=== PATIENT | female | born 1960 | race Asian ===

== ENCOUNTER 2019-04-11 07:17 | Inpatient (IN) | payer BC ==
[2019-03-25 16:00] VITALS: BMI 27.3
[~2019-04-11 07:17] MED LIST: CEFAZOLIN 2 GM in DEXTROSE 5%-WATER - 50 ML IVPB ONE; CELECOXIB 200 MG CAPSULE PO ONE; TRANEXAMIC ACID 1000 MG/10 ML VIAL IVPUSH ONE
[2019-04-11] MEDS ORDERED: PANTOPRAZOLE 40 MG TABLET ONE (07:29)
[2019-04-11] MEDS ORDERED: oxyCODONE HCL 10 MG SUSTAINED ACTING TABLET ONE (07:29)
[2019-04-11] MEDS ORDERED: SODIUM CHLORIDE 0.9% P/F 10 ML VIAL IJ ONE ×2 (07:30→09:27)
[2019-04-11] MEDS ORDERED: BUPIVACAINE LIPOSOME/PF (EXPAREL) 266 MG/20 ML VIAL ONE (07:30)
[2019-04-11] MEDS ORDERED: MIDAZOLAM HCL 2 MG/2 ML SINGLE DOSE VIAL ONE ×2 (07:30→07:37)
[2019-04-11] MEDS ORDERED: TRANEXAMIC ACID 1000 MG/10 ML VIAL ONE ×2 (07:37→07:53)
[2019-04-11] MEDS ORDERED: PROPOFOL 20 ML ONE ×2 (07:37)
--- NOTE | 2019-04-11 07:45 | HP ---
Admitting History and Physical - Admission Chief Complaint: right knee osteoarthritis x years History of Present Illness: 58 year old female presents in regard to their right knee. Long-standing history of right knee osteoarthritis. Patient complains of pain, limited range of motion, difficulty ambulating, and difficulty with activities of daily living. Patient has failed conservative treatment options including PO medications, activity modification, injections, and exercise programs. At this point, patient like to proceed with surgical intervention, right total knee arthroplasty MAKOplasty. History Source: Patient - Past Medical History Cardiovascular: Yes: Pulmonary Hypertension Musculoskeletal: Yes: Osteoarthritis - Past Surgical History Additional Past Surgical History: See written history & physical. - Advance Directives Advance Directives: Yes: Health Care Proxy - Smoking History Smoking history: Never smoked - Alcohol/Substance Use Hx Alcohol Use: No Home Medications - Allergies Allergies/Adverse Reactions: Allergies Allergy/AdvReac Type Severity Reaction Status Date / Time aspirin Allergy Swelling Verified 03/25/19 15:47 Penicillins Allergy Swelling Verified 03/25/19 15:47 shellfish derived Allergy Itching Verified 03/25/19 15:47 - Home Medications Home Medications: Ambulatory Orders Biotin 1 mg PO DAILY 03/25/19 Cholecalciferol (Vitamin D3) [Vitamin D3] 50,000 unit PO WEEKLY 03/25/19 Cyanocobalamin [Vitamin B12 -] 1,000 mcg PO DAILY 03/25/19 Famotidine/Ca Carb/Mag Hydrox [Pepcid Complete Tablet Chew] 1 each PO DAILY Meloxicam [Mobic] 15 mg PO DAILY 03/25/19 Tramadol HCl 75 mg PO DAILY PRN 03/25/19 Review of Systems - Review of Systems Musculoskeletal: reports: Crepitus (right knee), Decreased ROM (right knee), Joint Pain (right knee), Joint Swelling (right knee) Physical Examination Constitutional: Yes: Well Nourished Eyes: Yes: Conjunctiva Clear HENT: Yes: Normocephalic Neck: Yes: Supple Cardiovascular: Yes: Regular Rate and Rhythm Respiratory: Yes: Regular Gastrointestinal: Yes: Soft ...Rectal Exam: Yes: Deferred Musculoskeletal: Yes: Joint Stiffness (right knee), Joint Swelling (right knee) Assessment/Plan 58 year old female presents in regard to their right knee. Long-standing history of right knee osteoarthritis. Patient complains of pain, limited range of motion, difficulty ambulating, and difficulty with activities of daily living. Patient has failed conservative treatment options including PO medications, activity modification, injections, and exercise programs. At this point, patient like to proceed with surgical intervention, right total knee arthroplasty MAKOplasty. Pros, cons, risks, benefits, and alternatives of a right total knee arthroplasty MAKOplasty were discussed with the patient at length. Patient confirms their understanding and consents to proceed with a right total knee arthroplasty MAKOplasty.
[2019-04-11] MEDS ORDERED: VANCOMYCIN 1,000 MG VIAL (RESTRICTED TO ID ONLY) ONE (07:53)
[2019-04-11] MEDS ORDERED: ceFAZolin SODIUM 1 GM VIAL ONE ×2 (07:53→09:27)
[2019-04-11] MEDS ORDERED: oxyCODONE HCL 10 MG SUSTAINED ACTING TABLET PO ONE (08:00)
[2019-04-11] MEDS ORDERED: PANTOPRAZOLE 40 MG TABLET PO ONE (08:00)
[2019-04-11] MEDS ORDERED: PHENYLEPHRINE HCL 10 MG/1 ML SINGLE DOSE VIAL ONE (09:18)
[2019-04-11] MEDS ORDERED: DEXAMETHASONE SOD PHOSPHATE 4 MG/1 ML VIAL ONE (09:27)
[2019-04-11] MEDS ORDERED: ONDANSETRON 4 MG/2 ML VIAL ONE (09:27)
[2019-04-11] MEDS ORDERED: ePHEDrine SULFATE 50 MG/1 ML AMPULE ONE (10:13)
[2019-04-11] MEDS ORDERED: VANCOMYCIN 1,000 MG VIAL (RESTRICTED TO ID ONLY) IVPB ONE (11:15)
[2019-04-11] MEDS ORDERED: TRANEXAMIC ACID 1000 MG/10 ML VIAL IVPUSH ONE (11:31)
[2019-04-11] MEDS ORDERED: traMADol HCL 50 MG TABLET ONE (12:02)
[2019-04-11] MEDS ORDERED: ACETAMINOPHEN INJECTION 100 ML IVPB ONE (12:02)
[2019-04-11] MEDS ORDERED: KETOROLAC TROMETHAMINE 30 MG/1 ML VIAL ONE (12:02)
[2019-04-11] MEDS ORDERED: oxyCODONE HCL 5 MG TABLET PO PRN (12:07)
[2019-04-11] MEDS ORDERED: PROMETHAZINE HCL 25 MG/1 ML VIAL IVPUSH PRN (12:07)
[2019-04-11] MEDS ORDERED: ONDANSETRON 4 MG/2 ML VIAL IVPUSH PRN (12:07)
[2019-04-11] MEDS ORDERED: ACETAMINOPHEN 1000 MG/100 ML VIAL (NON FORMULARY) IVPB ONE (12:26)
[2019-04-11] MEDS ORDERED: traMADol HCL 50 MG TABLET PO SCH (12:30)
[2019-04-11] MEDS ORDERED: LACTATED RINGERS SOLUTION 1,000 ML IV SCH (12:30)
--- NOTE | 2019-04-11 12:31 | OP ---
Operative Note - Note: Operative Date: 04/11/19 Pre-Operative Diagnosis: Right knee OA Operation: RIGHT PEMA TKA Post-Operative Diagnosis: Same as Pre-op Surgeon: Silver Khalil Locomotive Operator: Lilliana Melo Anesthesia: Spinal Estimated Blood Loss (mls): 200
[2019-04-11] MEDS: oxyCODONE HCL 5 MG TABLET PO PRN ×2 (15:34→18:17)
[2019-04-11] MEDS: KETOROLAC TROMETHAMINE 30 MG/1 ML VIAL IVPUSH SCH (18:16)
[2019-04-11] MEDS: CEFAZOLIN 2 GM/D5W 2 GM/50 ML ML IVPB SCH (18:39)
[2019-04-11] MEDS ORDERED: DEXAMETHASONE SOD PHOSPHATE 10 MG/1 ML VIAL IVPB ONE (20:00)
[2019-04-11] MEDS: ACETAMINOPHEN 325 MG TABLET (FP) PO SCH (20:46)
[2019-04-11] MEDS: traMADol HCL 50 MG TABLET PO SCH (20:47)
[2019-04-11] MEDS: oxyCODONE HCL 10 MG SUSTAINED ACTING TABLET PO SCH (21:54)
[2019-04-11] MEDS: SENNOSIDES/DOCUSATE COMBO (SENNA PLUS) TABLET (UD) PO SCH (21:55)
[2019-04-11] MEDS: ASCORBIC ACID 500 MG TABLET (FP) PO SCH (21:55)
[2019-04-11] MEDS: GABAPENTIN 300 MG CAPSULE PO SCH (21:55)
[2019-04-11] MEDS: CELECOXIB 200 MG CAPSULE PO SCH (21:55)
[2019-04-11] MEDS: MAG HYDROX/AL HYDROX/SIMETH 30 ML UNIT-DOSE CUP PO PRN (21:59)
[2019-04-12] MEDS: KETOROLAC TROMETHAMINE 30 MG/1 ML VIAL IVPUSH SCH ×2 (00:29→06:20)
[2019-04-12] MEDS: traMADol HCL 50 MG TABLET PO SCH ×4 (02:04→20:29)
[2019-04-12] MEDS: CEFAZOLIN 2 GM/D5W 2 GM/50 ML ML IVPB SCH (02:05)
[2019-04-12] MEDS: ACETAMINOPHEN 325 MG TABLET (FP) PO SCH ×4 (02:05→20:29)
[2019-04-12 07:56] LABS: HEMATOCRIT 32.1 % (32.4-45.2); HEMOGLOBIN 10.7 GM/dl (10.7-15.3); MCH 30.1 pg (25.7-33.7); MCHC 33.2 g/dl (32.0-36.0); MEAN CELL VOLUME 90.6 fl (80-96); MEAN PLT VOLUME 8.3 fl (7.5-11.1); PLATELET COUNT 334 K/MM3 (134-434); RBC 3.55 M/mm3 (3.60-5.2); RDW 13.2 % (11.6-15.6); WHITE BLOOD COUNT 13.5 K/mm3 (4.0-10.8)
[2019-04-12 08:07] LABS: CALCIUM 9.1 mg/dl (8.5-10); CREATININE 0.7 mg/dl (0.55-1.3)
[2019-04-12] MEDS: APIXABAN 2.5 MG TABLET PO SCH ×2 (10:07→22:41)
[2019-04-12] MEDS: GABAPENTIN 300 MG CAPSULE PO SCH ×2 (10:07→22:41)
[2019-04-12] MEDS: oxyCODONE HCL 10 MG SUSTAINED ACTING TABLET PO SCH ×2 (10:07→22:41)
[2019-04-12] MEDS: CELECOXIB 200 MG CAPSULE PO SCH ×2 (10:07→22:41)
[2019-04-12] MEDS: SENNOSIDES/DOCUSATE COMBO (SENNA PLUS) TABLET (UD) PO SCH ×2 (10:09→22:42)
[2019-04-12] MEDS: ASCORBIC ACID 500 MG TABLET (FP) PO SCH ×2 (10:09→22:43)
[2019-04-12] MEDS: PANTOPRAZOLE 40 MG TABLET PO SCH (10:09)
[2019-04-12] MEDS: MULTIVITAMINS (DAILY MVI) TABLET (FP) PO SCH (10:09)
--- NOTE | 2019-04-12 10:32 | SPEC ---
DATE OF OPERATION: 04/11/2019 PREOPERATIVE DIAGNOSIS: Right knee osteoarthritis. POSTOPERATIVE DIAGNOSIS: Right knee osteoarthritis. PROCEDURE: Right total knee replacement with MAKOplasty robotic navigation. ATTENDING SURGEON: Mike Sears MD TUBE TEST TECHNICIAN: DOTTIE Morris ANESTHESIA: Spinal plus sedation. ESTIMATED BLOOD LOSS: 200 mL. COMPLICATIONS: None. DISPOSITION: The patient was transferred to the PACU in stable condition. IMPLANTS USED: [employer] Triathlon cementless components size 2 femoral component, size 3 tibial component, 13-mm posterior stabilized polyethylene component, 29-mm patellar component. INDICATIONS: This is a 58-year-old female who presented to the office complaining of severe bilateral knee pain. She was seen and examined by Dr. Sears and diagnosed with severe, bilateral knee osteoarthritis. The patient was initially treated nonoperatively with injections, medications, and physical therapy but continued to have severe pain and ambulatory dysfunction. She was, therefore, indicated for a right total knee replacement as the right was the more painful of the 2 sides with the plan to proceed with a left total knee replacement once she had recovered from the right. The risks, benefits, and alternatives to the procedure were explained to the patient in great detail, and the patient elected to proceed with the procedure. DESCRIPTION OF PROCEDURE: On the day of surgery, the patient was taken to the operating room and placed on the OR table. Spinal anesthesia was administered by the anesthesiologist. The patient was then positioned supine on the table and all bony prominences were padded. The knee was then prepped and draped in the usual sterile fashion and intravenous antibiotics were given for infection prophylaxis. A surgical time-out was then performed with the team, and the patients identity, procedure, side, availability of implants, and the administration of antibiotics was confirmed. With the knee flexed, a midline incision was made and carried down through the subcutaneous fat to the underlying retinaculum. A medial parapatellar arthrotomy was performed. This was followed by a subperiosteal dissection of the tissue off the proximal, medial tibia. A portion of fat pad was removed from under the patellar tendon, and a small portion of fat was excised off the distal supracondylar femur. Electrocautery and an Aquamantys bipolar sealing device were used to achieve hemostasis. The knee was then flexed further and the anterior horn of the lateral meniscus was released from the midline. Next, the anterior and posterior cruciate ligaments were transected. Grade 4 changes were noted diffusely throughout the knee. Femoral and tibial checkpoints were then placed in the appropriate location using a mallet. Two parallel bicortical self-drilling pins were placed in the tibial diaphysis after making stab incisions and bluntly dissecting down to bone. Two pins were then placed in the distal supracondylar femur. The wutabout navigation arrays were then attached to both the femoral and tibial pins and the lower extremity was then registered to the robotic navigation device using various joint movements, as well as inputting several dozen reference points. The knee was then taken through a full range of motion with a corrective force applied. Alignment in varus/valgus as well as flexion/extension and soft tissue balance was measured in various positions. The navigation device showed a numerical and graphic representation of the soft tissue balance. The components were repositioned virtually using the software until optimal soft tissue balance was achieved on screen. Once this was accomplished, the final plan was saved and sent to the robot. Self-retaining retractors were then placed at the joint line for exposure and protection of the collateral ligaments. The robot was brought into the sterile field and registered with the navigation device. The robotic arm with attached oscillating saw blade was then used to perform femoral and tibial bone cuts as per the saved software plan. The femoral box cut was made using the appropriately sized manual cutting guide. The knee was then irrigated. Trial components were placed and the knee was taken through a full range of motion to assess soft tissue balance and alignment. The range of motion was found to be excellent and the soft tissue balance was optimal and according to plan. The knee was then put into extension and the patella everted. The synovium around the patella was circumscribed with electrocautery. A caliper was used to measure the patellar thickness and a saw was then used to resect the patella at the chondro-osseous junction. The cut surface was then sized and drilled for the appropriate patellar button, with care taken to medialize it. A trial patella was then placed and the knee was again taken through a full range of motion. The knee was found to have both good balance and good patellar tracking. All of the components were removed except the tibial base plate. The appropriate instrumentation was used to drill and punch the proximal tibia for the keel of the final component. All bony surfaces were then cleaned with pulsatile lavage and dried. Cementless [employer] Triathlon knee replacement components were then impacted in place and found to have a stable press-fit. A trial polyethylene component was placed and the knee was again taken through a full range of motion to assess stability, balance, and patellar tracking. This was found to be optimal and the trial polyethylene was exchanged for the appropriately sized real implant. The wound was then thoroughly irrigated with normal saline. A 3-minute dilute Betadine lavage was performed. The knee was again irrigated using a pulsatile lavage device. A periarticular injection was used to locally infiltrate the capsular tissues surrounding the implant and prosthesis. Then No. 1 Polysorb and 0 VLoc 180 barbed sutures were used to close the arthrotomy. Then No. 1 Polysorb and 2-0 VLoc 90 sutures were used in the subcutaneous tissues. Then 4-0 undyed Vicryl and Dermabond skin adhesive was used to close the stab incisions made for the navigation pins. The skin was closed using both 3-0 VLoc 90 suture in a running subcuticular fashion and Dermabond skin adhesive. Once this was completed a sterile Aquacel dressing and compressive Channing-wrap was applied. The patient was then awakened and taken to the PACU in stable condition. MIKE SEARS M.D. [id number]
--- NOTE | 2019-04-12 16:29 | PN ---
Progress Note (short form) - Note Progress Note: Pt seen and examined. Doing well. AVSS Selected Entries 04/12/19 04/12/19 04/12/19 00:00 04:00 14:05 Temperature 98.3 F 97.6 F Pulse Rate 82 86 Respiratory 18 16 Rate Blood Pressure 110/52 L 104/50 L O2 Sat by Pulse 95 95 Oximetry (%) Oxygen Delivery Room Air Method Laboratory Tests 04/12/19 04/12/19 07:25 07:25 WBC 13.5 H Hgb 10.7 Hct 32.1 L Plt Count 334 Sodium 136 Potassium 4.0 Chloride 104 Carbon Dioxide 24 Anion Gap 8 BUN 14.0 Creatinine 0.7 Est GFR (CKD-EPI)AfAm 111.47 Random Glucose 188 H Calcium 9.1 Gen: NAD, AAO RLE: c/d/i, NVID A/P POD#1 s/p R PEMA TKA PT/OOB D/C home in AM
--- NOTE | 2019-04-12 16:35 | DS ---
Physical Examination Vital Signs: Vital Signs Temperature 97.6 F 04/12/19 14:05 Pulse Rate 86 04/12/19 14:05 Respiratory Rate 16 04/12/19 14:05 Blood Pressure 104/50 L 04/12/19 14:05 O2 Sat by Pulse Oximetry (%) 95 04/12/19 14:05 Labs: CBC, BMP 04/12/19 07:25 04/12/19 07:25 Discharge Summary Problems reviewed: Yes Reason For Visit: RIGHT KNEE OSTEOARTHRITIS Current Active Problems Osteoarthritis of right knee (Acute) Procedures: Principal: Right PEMA TKA Hospital Course: Admitted for elective surgery. Procedure performed without complications. Pt received postoperative antibiotic prophylaxis and DVT ppx. Ambulated with physical therapy. Stable for discharge home with outpatient followup. Condition: Stable - Instructions Diet, Activity, Other Instructions: Dr. Khalil - Knee Replacement Instructions Keep the Aquacel dressing on until removed by Dr. Khalil in the office - it is antibacterial and waterproof and you can shower with it on. Call the office for a follow-up appointment with Dr. Khalil in 2 weeks. Take ELIQUIS 2.5mg twice daily for 5 weeks to prevent blood clots in your legs. Take one Pantoprazole 40mg daily for 6 weeks to protect against heartburn and ulcers. Take Cephalexin (antibiotic) 3x/day for 10 days to help prevent skin infection. Take a multivitamin, stool softener, and extra Vitamin C supplement daily. For pain: *Mild pain (1-3/10): Take 1 Tramadol tablet every 4 hours as needed. Moderate pain (4-6/10): Take 1 Tramadol tablet and 1 Percocet tablet every 4 hours as needed. Severe pain (7-10/10): Take 1 Tramadol tablet and 2 Percocet tablets every 4 hours as needed. Activity: You can put as much weight on the operative leg as you want. Right after you get home, there will be a physical therapist coming to your house to help you walk around and bend/straighten your knee. After your follow-up appointment, you will be sent for more intensive outpatient physical therapy which will include machines and equipment that the home therapist cannot bring to your house. Always use a walker or cane for balance and to prevent falls. Expect to see swelling/bruising from the operative site all the way down to your toes. Wear the compression stocking on the operative side during the day to minimize how much swelling there is in your foot/ankle. Don't wear the stocking at night. You don't have to wear a stocking on the other side. Disposition: VNS/HOME HEALTH CARE - Home Medications Comprehensive Discharge Medication List: Ambulatory Orders Biotin 1 mg PO DAILY 03/25/19 Cholecalciferol (Vitamin D3) [Vitamin D3] 50,000 unit PO WEEKLY 03/25/19 Cyanocobalamin [Vitamin B12 -] 1,000 mcg PO DAILY 03/25/19 Famotidine/Ca Carb/Mag Hydrox [Pepcid Complete Tablet Chew] 1 each PO DAILY Apixaban [Eliquis -] 2.5 mg PO BID #70 tablet 04/12/19 Ascorbic Acid [Vitamin C -] 500 mg PO BID tablet 04/12/19 Cephalexin Monohydrate [Keflex -] 500 mg PO TID #30 capsule 04/12/19 Multivitamins [Multivit ([facility])] 1 tab PO DAILY tab 04/12/19 Oxycodone HCl/Acetaminophen [Percocet 5-325 mg Tablet] 1 - 2 tab PO Q4H PRN #60 tablet MDD 10 04/12/19 Pantoprazole Sodium [Protonix -] 40 mg PO DAILY #40 tablet.ec 04/12/19 Sennosides/Docusate Sodium [Pericolace -] 2 tablet PO BID tablet 04/12/19 traMADol HCL [Ultram -] 50 mg PO Q4H PRN #42 tablet MDD 6 04/12/19
[2019-04-12] MEDS: ONDANSETRON 4 MG/2 ML VIAL IVPUSH PRN (18:30)
[2019-04-12] MEDS: MAGNESIUM HYDROX 2400MG/30ML ORAL SUSPENSION 30 ML CUP PO PRN ×2 (18:55→22:00)
[2019-04-12] MEDS: MAG HYDROX/AL HYDROX/SIMETH 30 ML UNIT-DOSE CUP PO PRN (18:55)
[2019-04-13] MEDS: traMADol HCL 50 MG TABLET PO SCH ×2 (01:58→07:30)
[2019-04-13] MEDS: ACETAMINOPHEN 325 MG TABLET (FP) PO SCH ×2 (01:59→08:10)
[2019-04-13] MEDS: ONDANSETRON 4 MG/2 ML VIAL IVPUSH PRN (03:27)
[2019-04-13] MEDS: MAGNESIUM HYDROX 2400MG/30ML ORAL SUSPENSION 30 ML CUP PO PRN (05:58)
[2019-04-13 06:55] VITALS: BP 84/42; PULSE 67; TEMP 97.9
[2019-04-13 08:22] LABS: HEMATOCRIT 29.9 % (32.4-45.2); HEMOGLOBIN 9.9 GM/dl (10.7-15.3); MCH 29.7 pg (25.7-33.7); MCHC 33.1 g/dl (32.0-36.0); MEAN PLT VOLUME 8.6 fl (7.5-11.1); PLATELET COUNT 265 K/MM3 (134-434); RBC 3.32 M/mm3 (3.60-5.2); RDW 13.3 % (11.6-15.6); WHITE BLOOD COUNT 5.9 K/mm3 (4.0-10.8)
[2019-04-13] MEDS: APIXABAN 2.5 MG TABLET PO SCH (10:17)
[2019-04-13] MEDS: CELECOXIB 200 MG CAPSULE PO SCH (10:17)
[2019-04-13] MEDS: GABAPENTIN 300 MG CAPSULE PO SCH (10:17)
[2019-04-13] MEDS: oxyCODONE HCL 10 MG SUSTAINED ACTING TABLET PO SCH (10:17)
[2019-04-13] MEDS: SENNOSIDES/DOCUSATE COMBO (SENNA PLUS) TABLET (UD) PO SCH (10:20)
[2019-04-13] MEDS: ASCORBIC ACID 500 MG TABLET (FP) PO SCH (10:20)
[2019-04-13] MEDS: MULTIVITAMINS (DAILY MVI) TABLET (FP) PO SCH (10:20)
[2019-04-13] MEDS: PANTOPRAZOLE 40 MG TABLET PO SCH (10:20)
--- NOTE | 2019-04-15 14:50 | PATH ---
Surgical Pathology Report Patient Name: LEONA HUERTA Med. Rec. #: [id number] /Age/Gender: 1960 (Age: 58) / F Account: [id number] Location: [facility] MED-SURG Taken: 04/11/2019 Received: 04/11/2019 Reported: 04/15/2019 Physicians: Silver Khalil M.D. Specimen(s) Received RIGHT KNEE BONES Clinical History Right knee osteoarthritis Final Diagnosis RIGHT KNEE BONES, RESECTION: DEGENERATIVE JOINT DISEASE, RIGHT KNEE. Electronically Signed Dimple Reyes M.D. Gross Description Received in formalin labeled "right knee bone," is a 12.5 x 10.0 x 2.0 cm aggregate of multiple portions of bone and soft tissue, consistent with knee bones. There are multiple areas of eburnation present, measuring up to 3.2 cm in greatest dimension. The remaining articular surfaces are edwards-brown and diffusely granular. The underlying trabecular bone is yellow and hard. [facility] sections are submitted in one cassette, following decalcification. /04/12/2019 located within [facility]04/12/2019
== END 2019-04-13 10:40 | disposition home health service (06) | DRG 470 ==
LOC: FM/S 07:17
PROVIDERS: ADMIT Student in an Organized Health Care Education/Training Program; ATTEND Student in an Organized Health Care Education/Training Program
PROC: 8E0Y0CZ Robotic Assisted Procedure of Lower Extremity, Open Approach (ICD-10-PCS; 2019-04-11)
PROC: 0SRC0JA Replacement of Right Knee Joint with Synthetic Substitute, Uncemented, Open Approach (ICD-10-PCS; principal; 2019-04-11 09:39)
DX: M17.11 Unilateral primary osteoarthritis, right knee (principal); I27.20 Pulmonary hypertension, unspecified
CPT/HCPCS: 36415; 73560-TC-RT-FY; 80048; 85027; 88304-TC; 88311-TC; 94760; 97116-GP; 97163-GP; J0131; J1100

== ENCOUNTER → 2019-11-07 | Day surgery (SDC) | payer BC, OTHER ==
--- NOTE | 2019-11-11 15:01 | PATH ---
Surgical Pathology Report Patient Name: LEONA HUERTA [facility]. Rec. #: [id number] /Age/Gender: 1960 (Age: 58) / F Account: [id number] Location: [facility] Taken: 11/07/2019 Received: 11/07/2019 Reported: 11/11/2019 Physicians: Ricky Corrigan M.D. Specimen(s) Received A: RIGHT BREAST SPECIMEN WITH CALCIFICATIONS B: RIGHT BREAST SPECIMEN WITHOUT CALCIFICATIONS Clinical History Nonpalpable lesion Mammographic findings: Suspicious, highly suspicious/malignant Final Diagnosis A. 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 (SEE NOTE) Note: At least two foci of microinvasive carcinoma are noted on H&E slides. Myoepithelial immunohistochemical markers (SMM-HC and p63, performed at [facility]) demonstrate the lack of myoepithelial cells in one focus of microinvasive carcinoma; the other focus of microinvasion is not clearly discernible on immunostained slides. These findings supports the diagnosis. Results of ER and OR studies performed (on microinvasive carcinoma and DCIS) at [facility] are as follows: ER (clone [id number] mouse monoclonal antibody by [employer]): _X_ Negative. PgR (clone16 mouse monoclonal antibody by [employer]): _X_ Negative. Her2 studies are being attempted and will be reported separately in an addendum. B. BREAST, RIGHT, WITHOUT CALCIFICATIONS, STEREOTACTIC BIOPSY: BENIGN PREDOMINANTLY FATTY BREAST TISSUE. Positive and negative controls (internal if applicable) show appropriate results. Formalin fixation and cold ischemic times are within current ASCO/CAP recommendations for ER, OR and Her2 testing. Electronically Signed Suly Dye M.D. Addendum Reported: 11/19/2019 Addendum Diagnosis Results of Her2 (IHC) studies performed on block A at [place], [place] ([id number]) are as follows: Her2 IHC (EP3 from [employer], formerly known as RO3836C, using [employer] Polymer Refine detection kit): 3+ (positive). Comment: Microinvasive carcinoma and DCIS show complete membranous staining for Her2 by IHC (3+). Positive and negative controls (internal if applicable) show appropriate results. Suly Dye M.D. Gross Description A. Received in formalin labeled "right breast with calcifications," is a 2.2 x 2.2 x 0.2 cm aggregate of multiple edwards-yellow, irregular to cylindrical portions of fibroadipose tissue. The formalin is filtered and the specimen is entirely submitted in one cassette. B. Received in formalin labeled "right breast without calcifications," is a 1.1 x 0.6 x 0.2 cm aggregate of multiple edwards-yellow, irregular to cylindrical portions of fibroadipose tissue. The formalin is filtered and the specimen is entirely submitted in one cassette. Time to formalin fixation: 5 minutes Total formalin fixation time: Approximately 7 hours. 11/07/2019 [facility]11/07/2019
== END | disposition home or self-care (01) ==
LOC: FMAMMOTONE 10:22
PROVIDERS: ATTEND Surgery
PROC: 0HBT3ZX Excision of Right Breast, Percutaneous Approach, Diagnostic (ICD-10-PCS; principal; 2019-11-07)
DX: D05.11 Intraductal carcinoma in situ of right breast (principal); R92.1 Mammographic calcification found on diagnostic imaging of breast
CPT/HCPCS: 19081; 76098-TC-FY; 87899; 88305-TC; 88341-TC; 88342-TC; A4648

== ENCOUNTER → 2022-07-28 | Day surgery (SDC) | payer BC, OTHER | END | disposition home or self-care (01) | LOC: FMAMMOTONE 10:04 | PROVIDERS: ATTEND Surgery | PROC: 0HBT3ZX Excision of Right Breast, Percutaneous Approach, Diagnostic (ICD-10-PCS; principal; 2022-07-28) | DX: N60.21 Fibroadenosis of right breast (principal); N60.31 Fibrosclerosis of right breast; N64.89 Other specified disorders of breast; R92.0 Mammographic microcalcification found on diagnostic imaging of breast | CPT/HCPCS: 19081; 19082; 76098-TC-FY; 87899; 88305-TC; 88341-TC; 88342-TC; A4648 ==